=== PATIENT | female | born 1970 | race Caucasian/White ===

== ENCOUNTER → 2016-11-11 | Day surgery (SDC) | payer OTHER ==
[2016-11-10 15:57] LABS: INR 1.25 (0.9-1.2); PROTHROMBIN TIME 15.3 SECONDS (11.7-14.0); PTT 31.5 SECONDS (23.2-31.4)
[2016-11-10 16:00] LABS: BASOPHIL 0 % (0-2); EOSINOPHIL 0 % (0-5); HCT 36.7 % (37.0-47.0); HGB 12.1 g/dl (12.5-16.0); MCH 28.6 pg (25.0-31.0); MCV 86.8 fL (78.0-100.0); MONOCYTE 12.8 % (0-12); MPV 10.9 fL (6.0-9.5); NEUTROPHIL 65.2 % (41-80); RBC 4.23 M/uL (4.20-5.40); RDW 15.9 % (11.5-14.0)
[2016-11-10 16:02] LABS: PLT 23 K/uL (150-400); WBC 1.1 K/uL (4.0-10.5)
[2016-11-10 16:03] LABS: ALBUMIN 4.3 g/dL (3.5-5.0); CREATININE 0.7 mg/dL (0.5-1.0); GLOBULIN (CALCULATION) 1.8 g/dL (2.2-4.2); POTASSIUM 3.5 mmol/L (3.5-5.1); TOTAL PROTEIN 6.1 g/dL (6.4-8.3)
--- NOTE | 2016-11-10 16:18 | NUR ---
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 PT. HAS PLATELET INFUSION ORDERED TOMORROW PER MARLENE CORDERO RN. I ASKED HIM IF I SHOULD LET THE MD KNOW AND HE SAID M HE WAS ALREADY AWARE AND THAT IS WHY HE ORDERED THE PLATELETS.
== END | disposition home or self-care (01) ==
LOC: FAS 08:57
PROVIDERS: Oral & Maxillofacial Surgery
DX: K02.9 Dental caries, unspecified (principal); K05.30 Chronic periodontitis, unspecified; Z88.1 Allergy status to other antibiotic agents; Z88.5 Allergy status to narcotic agent; E11.9 Type 2 diabetes mellitus without complications; F31.9 Bipolar disorder, unspecified; F41.9 Anxiety disorder, unspecified; Z90.710 Acquired absence of both cervix and uterus; Z79.899 Other long term (current) drug therapy; Z88.8 Allergy status to other drugs, medicaments and biological substances; D69.6 Thrombocytopenia, unspecified; D70.9 Neutropenia, unspecified
CPT/HCPCS: 36415; 80053; 85025; 85610; 85730; 86850; 86900; 86901; 93005; J1100; J1170; J2540; J2704; J3010; P9035